=== PATIENT | male | born 1960 | race African-American/Black ===

== ENCOUNTER 2018-10-15 10:25 | Emergency (ER) | payer SELFPAY ==
[~2018-10-15] VITALS: Ht 160 cm; Wt 68.0 kg
[2018-10-15 10:34] VITALS: BP 134/75
[2018-10-15] MEDS ORDERED: AMOXICILLIN500 MG ORAL (10:53)
[2018-10-15] MEDS ORDERED: PROMETHAZINE-C118 M1 ORAL (10:53)
[2018-10-15] MEDS ORDERED: ALBUTEROL SULF8.5 GM INH (10:53)
--- NOTE | 2018-10-15 15:19 | Emergency Room Report ---
History of Present Illness General Chief Complaint: Upper Respiratory Illness Source: Patient Present Illness HPI 57-year-old male presents ED for evaluation. Complaining of coughing for the last 3 months. States productive sputum greenish color. States it is not resolved. Has tried multiple [id number] medications. Denies smoking. Denies fevers or chills. Denies body aches or chills. Denies recent travel. States that he recently moved here and does not have a PMD. Denies any sick contacts. No other aggravating relieving factors. Denies any other associated symptoms Allergies: Coded Allergies: No Known Allergies (Unverified , 10/15/18) Patient History Past Medical History: none Past Surgical History: none Pertinent Family History: none Social History: Denies: smoking, alcohol use, drug use Immunizations: UTD Reviewed Nursing Documentation: PMH: Agreed; PSxH: Agreed Nursing Documentation-PMH Past Medical History: No Stated History Review of Systems All Other Systems: negative except mentioned in HPI Physical Exam Vital Signs Date Time Temp Pulse Resp B/P (MAP) Pulse Ox O2 Delivery O2 Flow Rate FiO2 10/15/18 10:30 97.7 96 18 134/75 96 Room Air Sp02 EP Interpretation: reviewed, normal General Appearance: no apparent distress, alert, GCS 15, non-toxic Head: normocephalic, atraumatic Eyes: bilateral eye normal inspection, bilateral eye PERRL ENT: hearing grossly normal, normal pharynx, no angioedema, normal voice Neck: full range of motion, supple/symm/no masses Respiratory: chest non-tender, lungs clear, normal breath sounds, speaking full sentences Cardiovascular #1: regular rate, rhythm, no edema Cardiovascular #2: 2+ carotid (R), 2+ carotid (L), 2+ radial (R), 2+ radial (L) , 2+ dorsalis pedis (R), 2+ dorsalis pedis (L) Gastrointestinal: normal bowel sounds, non tender, soft, non-distended, no guarding, no rebound Rectal: deferred Genitourinary: normal inspection, no CVA tenderness Musculoskeletal: back normal, gait/station normal, normal range of motion, non- tender Neurologic: alert, oriented x3, responsive, motor strength/tone normal, sensory intact, speech normal Psychiatric: judgement/insight normal, memory normal, mood/affect normal, no suicidal/homicidal ideation Reflexes: 3+ bicep (R), 3+ bicep (L), 3+ tricep (R), 3+ tricep (L), 3+ knee (R) , 3+ knee (L) Skin: normal color, no rash, warm/dry, well hydrated Lymphatic: no adenopathy Medical Decision Making Diagnostic Impression: Primary Impression: Atypical pneumonia ER Course Hospital Course 57 yo M presents with cough x 3 months Differential diagnoses include: URI, pharyngitis, otitis media, asthma Clinical course Patient placed on stretcher. After initial history, physical exam reveals a male in no acute distress. Bilateral TM unremarkable. No pharyngeal erythema. No tonsillar exudates. No lymphadenopathy. lungs clear. abdomen soft. given persistence of symtpoms, presentation consistent with atypical pneumonia. I will prescribe antibiotics Patient does not have a PMD here. I'll provide referrals Diagnosis - atypical pneumonia Stable and discharged home with Rx amoxicillin, promethazine/codeine. Instructed to followup with PMD. Return to ED if symptoms recur or worsen Last Vital Signs Date Time Temp Pulse Resp B/P (MAP) Pulse Ox O2 Delivery O2 Flow Rate FiO2 10/15/18 11:02 97.7 89 18 134/75 96 Room Air Status: improved Disposition: HOME, SELF-CARE Condition: Stable Scripts Albuterol Sulfate* (ALBUTEROL SULFATE MDI*) 8.5 Gm Hfa.aer.ad 2 PUFF INH Q4H, #1 INH 0 Refills Prov: Kody Hayden MD 10/15/18 Codeine/Promethazine Hcl* (PROMETHAZINE-CODEINE SYRUP*) 118 Ml Syrup 5 ML ORAL Q6H PRN for For Cough, #118 ML 0 Refills Prov: Kody Hayden MD 10/15/18 Amoxicillin* (AMOXIL*) 500 Mg Capsule 500 MG ORAL THREE TIMES A DAY, #21 CAP Prov: Kody Hayden MD 10/15/18 Referrals: [facility] Greyson Reyez [facility]. [facility] Patient Instructions: Community-Acquired Pneumonia, Adult, [id number] Kody Hayden MD Oct 15, 2018 15:19
== END 2018-10-15 11:02 | disposition home or self-care (01) ==
LOC: EMR 10:56
DX: J18.9 Pneumonia, unspecified organism (principal)
CPT/HCPCS: 99283